=== PATIENT | male | born 2000 | race Hispanic/Latino ===

== ENCOUNTER 2023-09-22 12:00 | Emergency (ER) | payer SELFPAY | END 2023-09-22 12:31 | disposition home or self-care (01) | LOC: NAV ERS 12:00 | DX: S61.012A Laceration without foreign body of left thumb without damage to nail, initial encounter (principal); F17.290 Nicotine dependence, other tobacco product, uncomplicated; W26.9XXA Contact with unspecified sharp object(s), initial encounter; Y99.0 Civilian activity done for income or pay | CPT/HCPCS: 12001; 99282 ==